=== PATIENT | male | born 1955 ===

== ENCOUNTER 2023-03-24 06:43 | Observation (INO) ==
[~2023-03-24 06:43] MED LIST: Buffered Lidocaine 1% SYRIN 1 ml INTRADERM ONE; Lactated Ringers 1000 ml BAG 1,000 ML IV SCH; Naloxone 0.4 mg VIAL 0.4 mg/ml 1 ml VIAL IV PRN; Ondansetron 4 mg VIAL 2 MG/ML 2 ml VIAL IV PRN; ceFAZolin 2 GM PREMIX 2 GM/50 ML BAG ONE; fentaNYL 100 mcg/2 ml 50 MCG/ML VIAL IV PRN
[2023-03-24] MEDS ORDERED: ROPIVACAINE 5 MG/ML 30 ML BTL (0.5%) ONE ×2 (07:14→08:53)
[2023-03-24 07:33] LABS: Rapid COVID-19 Molecular Undetected (Undetected)
[2023-03-24] MEDS ORDERED: Midazolam 2 mg/2 ml VIAL 1 mg/ml 2 ml VIAL (2 mg) ONE ×2 (08:34→09:00)
[2023-03-24] MEDS ORDERED: Bupivacaine 0.5% SDV PF 30ML VIAL ONE (08:34)
[2023-03-24] MEDS ORDERED: Dexamethasone IV 4 MG/ML VIAL 1 ml VIAL ONE ×2 (08:35→09:49)
[2023-03-24] MEDS ORDERED: Lidocaine 2% PF 5 ML VIAL ONE (08:52)
[2023-03-24] MEDS ORDERED: Phenylephrine IV 10 MG/ML 1 ml VIAL ONE (08:52)
[2023-03-24] MEDS ORDERED: Acetaminophen IV 1 GM/100ML 1,000 MG/100 ML BAG IV ONE (09:49)
[2023-03-24] MEDS ORDERED: Ondansetron 4 mg VIAL 2 MG/ML 2 ml VIAL ONE (09:49)
[2023-03-24] MEDS ORDERED: Glycopyrrolate IV 0.2 MG/ML 1 ML VIAL ONE (09:57)
[2023-03-24] MEDS ORDERED: Propofol 10 MG/ML 20 ML BTL ONE (11:12)
[2023-03-24] MEDS ORDERED: Lactulose 30 ml UDC PO PRN (11:54)
[2023-03-24] MEDS ORDERED: Magnesium Hydroxide LIQ 30 ML UDC PO PRN (11:54)
[2023-03-24] MEDS ORDERED: Ondansetron ODT 4 mg TAB 4 MG TAB PO PRN (11:54)
[2023-03-24] MEDS ORDERED: Ondansetron 4 mg VIAL 2 MG/ML 2 ml VIAL IV PRN (11:54)
[2023-03-24] MEDS ORDERED: Morphine 2 MG/ML SYRINGE IV PRN (11:54)
[2023-03-24] MEDS ORDERED: Lactated Ringers 1000 ml BAG 1,000 ML IV SCH (12:00)
[2023-03-24] MEDS ORDERED: Dextrose 50% Syringe 50 ml 25 GM/50 ML SYRINGE IV PUSH PRN (14:36)
[2023-03-24] MEDS: ceFAZolin 1 GM ADVAN 1 GM in NS 0.9% 50 ML 50 ML IVPB SCH (18:19)
[2023-03-24] MEDS: Magnesium Hydroxide LIQ 30 ML UDC PO SCH (21:53)
[2023-03-25] MEDS: ceFAZolin 1 GM ADVAN 1 GM in NS 0.9% 50 ML 50 ML IVPB SCH ×2 (03:03→10:53)
[2023-03-25 05:44] LABS: Hematocrit 30.7 % (38-53); Hemoglobin 10.7 g/dL (13.2-16.3); Platelet Count 174 10^3/uL (150-450)
[2023-03-25 06:01] LABS: Calcium 8.4 mg/dL (8.6-10.3); Creatinine, Serum 2.05 mg/dL (0.67-1.17); Potassium 4.6 mmol/L (3.5-5.0); eGFR CKD-EPI 34.6 (>60)
[2023-03-25] MEDS: Magnesium Hydroxide LIQ 30 ML UDC PO SCH (08:35)
[2023-03-25] MEDS ORDERED: Vitamin THERAPEUTIC TAB PO SCH (09:00)
[2023-03-25 09:56] VITALS: BP 104/55
== END 2023-03-25 13:40 | disposition home or self-care (01) ==
LOC: OR 06:43 → SSU 06:43 → EDSTATUS 11:00
PROVIDERS: ADMIT Orthopaedic Surgery Adult Reconstructive Orthopaedic Surgery; ATTEND Orthopaedic Surgery Adult Reconstructive Orthopaedic Surgery